=== PATIENT | male | born 1940 | race Caucasian/White ===

== ENCOUNTER 2018-11-22 13:00 | Inpatient (IN) ==
[2018-11-22] MEDS ORDERED: Isovue-370 500 ML BOTTLE IVP ONE (15:33)
[2018-11-22 16:01] LABS: Basophils % 0.2 %; Eosinophils % 0.5 %; Hematocrit 35.8 % (37.5-50.1); Hemoglobin 11.6 g/dL (12.9-16.9); Immature Granulocytes % 0.2 % (0-4); Lymphocytes # 1.1 K/mcL (0.6-4.6); Lymphocytes % 13.3 %; Mean Corpuscular HGB Conc 32.4 g/dL (31.6-35.5); Mean Corpuscular Hemoglobin 26.7 pg (28.0-33.3); Mean Corpuscular Volume 82.5 fL (83.0-100.0); Mean Platelet Volume 11.3 fL (9.4-12.4); Monocytes # 0.6 K/mcL (0.0-1.3); Neutrophils # 6.7 K/mcL (1.6-8.9); Platelet Count 207 K/mcL (140-400); Red Blood Count 4.34 M/mcL (4.19-5.50); Red Cell Distribution Width 13.3 % (11.5-14.5); Segmented Neutrophils % 78.8 %
[2018-11-22 16:08] LABS: INR 1.1; Prothrombin Time 12.7 Seconds (9.4-12.1)
[2018-11-22 16:11] LABS: Activated Partial Thrombo Time 34.1 Seconds (26.0-36.0)
[2018-11-22 16:24] LABS: Alanine Aminotransferase 10 Units/L (7-52); Albumin 3.9 g/dL (3.5-5.7); Albumin/Globulin Ratio 1.3 (1.1-2.2); Alkaline Phosphatase 46 Units/L (34-104); Aspartate Amino Transferase 18 Units/L (13-39); BUN/Creatinine Ratio 22 (6-26); Bilirubin,Total 0.9 mg/dL (0.3-1.0); Blood Urea Nitrogen 19 mg/dL (8-23); Calcium 8.9 mg/dL (8.6-10.3); Carbon Dioxide 26 mEq/L (23-29); Chloride 105 mEq/L (98-107); Glucose 110 mg/dL (70-105); Lipase 7 Units/L (11-82); Osmolality,Calculated 291 (280-300); Potassium 3.5 mEq/L (3.5-5.1); Sodium 139 mEq/L (136-145); Total Protein 6.9 g/dL (6.4-8.9); Troponin I < 0.03 ng/mL (< 0.04); eGFR For Non-African Americans > 60 (> 60)
--- NOTE | 2018-11-22 17:10 | Emergency Department Note ---
Disposition Clinical Impression: Rectal bleeding, Colonic mass, Kidney stone Hydronephrosis Qualifiers: Hydronephrosis type: unspecified Qualified Code(s): N13.30 - Unspecified hydronephrosis Disposition: Admitted As Inpatient Condition: Good Referrals: Pelon Mustafa MD [Primary Care Provider] - Forms: ED Satisfaction Letter Time of Disposition: 17:11 GI Bleed HPI - General Chief complaint: ED GI Bleed Stated complaint: Rectal bleed Time Seen by Provider: 11/22/18 15:03 Source: patient, family Mode of arrival: ambulatory Limitations: no limitations Nursing Notes Reviewed: Yes Vital Signs Reviewed: Yes - History of Present Illness HPI Narrative: 78 year old male presents to the ED with complanits of recta bleeding and passing clots. It appears that patient last colonscopy was over 10 years ago and he states that most recenlty in the past week he has been experincing increased rectal bleeding with clots that have been on the toilet paper and in the bowl. Osei states that this a fisrt time occurnce and he is having increased abdominal pain it he lwoer pelvic area and denies fevers nauea or vomititng. PAtient staets that he was suppose to be on xarelto therapy but has not been for sometime because it was too expernsive. Osei cannot recollect if he has had any previou abdominal surgeries in the past. Osei has not had a recent blood transfusion either. They are concerned that his iron level may be low because he has reqireed that int he past. - Related Data Home Medications Medication Instructions Recorded Confirmed Aspirin 81 mg PO DAILY 03/14/16 03/14/16 Cholecalciferol (D-3) [Vitamin D] 2,000 unit PO DAILY 03/14/16 03/14/16 Lisinopril [Zestril] 40 mg PO DAILY 03/14/16 03/14/16 Mv,Minerals/FA/Lycopene/Ginkgo 1 tab PO DAILY 03/14/16 03/14/16 [One Daily For Men 50+ Adv Tab] amLODIPine [Norvasc] 10 mg PO DAILY 03/14/16 03/14/16 Previous Rx's Medication Instructions Recorded Metoprolol [Lopressor] 50 mg PO BID #60 tablet 03/15/16 Rivaroxaban [Xarelto] 20 mg PO 1700 30 Days tablet 03/15/16 Allergies Allergy/AdvReac Type Severity Reaction Status Date / Time No Known Allergies Allergy Verified 11/22/18 13:17 All systems ED: reviewed and negative except as stated. Review of Systems: As Per HPI Constitutional: Denies: fever, chills, weakness, weight change Eyes: Denies: eye pain, eye discharge, vision change ENT ED: Denies: ear pain, throat pain, dental pain, hearing loss, epistaxis, congestion, dysphagia Cardiovascular: Denies: chest pain, palpitations, dyspnea on exertion, edema, syncope Respiratory: Denies: cough, dyspnea, wheezes, hemoptysis, stridor Gastrointestinal: Reports: abdominal pain, melena. Denies: nausea, vomiting, diarrhea, constipation, hematemesis, hematochezia Genitourinary: Denies: urgency, dysuria, frequency, hematuria Musculoskeletal: Denies: back pain, neck pain, arthralgia, myalgia Integumentary: Denies: rash, abrasion, lesions Neurological: Denies: headache, weakness, numbness, paresthesias, confusion, abnormal gait, vertigo Psychiatric: Denies: anxiety, depression, suicidal thoughts, homicidal thoughts, auditory hallucinations, visual hallucinations Endocrine: Denies: fatigue Hematological/Lymphatic: Denies: easy bleeding, easy bruising Allergic/Immunologic: Denies: facial swelling, urticaria Past Medical History - Past Medical History Medical history: Reports: atrial fibrillation, coronary artery disease, hypertension - Social History Smoking Status: Former smoker Smokeless Tobacco Status: No Alcohol use: Reports: none Drug use: Reports: none Physical Exam - General Limitations: no limitations General appearance: alert - Head Head exam: atraumatic, normocephalic, normal inspection - Eye Eye exam: Present: normal appearance, PERRL, EOMI - Expanded Eye Exam Pupils: Bilateral: reactive - ENT ENT exam: normal exam, normal oropharynx, mucous membranes moist - Expanded ENT Exam External ear exam: Present: normal external inspection Mouth exam: Present: normal external inspection Teeth exam: Present: normal inspection Throat exam: Present: normal inspection - Neck Neck exam: Present: normal inspection, full ROM, trachea midline - Chest Chest inspection: Present: normal inspection, symmetric chest wall rise - Respiratory Respiratory exam: Present: normal lung sounds bilaterally - Cardiovascular Cardiovascular exam: Present: regular rate, normal rhythm, normal heart sounds - Abdominal Exam Abdominal exam: Present: soft, tenderness. Absent: Non-Tender, distention, guarding, rebound, rigidity Abdominal tenderness: Present: suprapubic, mild - Rectal Exam Project Product Manager present during exam: Yes Rectal exam: Present: normal rectal tone, heme (+) stool, bloody stool, tenderness - Extremities Exam Extremities exam: Present: normal inspection, full ROM. Absent: tenderness, pedal edema - Expanded Upper Extremity Exam Shoulder exam: Present: normal inspection, full ROM Arm exam: Present: normal inspection, full ROM Elbow exam: Present: normal inspection, full ROM Forearm/Wrist exam: Present: normal inspection, full ROM Hand exam: Present: normal inspection, full ROM Vascular exam: Normal: capillary refill, radial pulse - Expanded Lower Extremity Exam Hip/Pelvis exam: Present: normal inspection, full ROM Upper leg exam: Present: normal inspection, full ROM Knee exam: Present: normal inspection, full ROM Lower leg exam: Present: normal inspection, full ROM Ankle exam: Present: normal inspection, full ROM Foot/toe exam: Present: normal inspection, full ROM Neurovascular/Tendon exam: Absent: motor deficit, sensory deficit, tendon deficit - Back Exam Back exam: Present: normal inspection, full ROM. Absent: tenderness - Neurological Exam Neurological exam: Present: alert, oriented X3 - Expanded Neurological Exam Patient oriented to: Present: person, place, time Coma Scale Eye Opening: Spontaneous Coma Scale Motor Response: Obeys Commands Coma Scale Verbal Response: Oriented Coma Scale Total: 15 - Psychiatric Psychiatric exam: Present: normal affect, normal mood - Skin Skin exam: Present: warm, dry, intact, normal color Course Course Narrative: ABCT and labs and then admit to medicine. He will not needs a tranfsusion at this ttime because his hgb is 11, although it has dropped by about 3 units from the past when he was normal - Consultations Consultation #1: discussed case witih Dr. Graham and he would like patient NPO after midnight with colon prep now. Time: 17:40 Consultation #2: Discussed case with Dr. Humphrey urology and he will see patinet as consutl Time: 17:40 Consultation #3: discussed case with dr. Keller and he accepts patient to his service Time: 17:44 Vital Signs Temperature 97.9 F 11/22/18 13:13 Pulse Rate 97 11/22/18 13:13 Respiratory Rate 16 11/22/18 13:13 Blood Pressure 138/79 11/22/18 13:13 O2 Sat by Pulse Oximetry 96 11/22/18 13:13 Temperature 97.9 F 11/22/18 15:10 Pulse Rate 83 11/22/18 17:21 Respiratory Rate 16 11/22/18 15:10 Blood Pressure 135/93 11/22/18 17:21 O2 Sat by Pulse Oximetry 96 11/22/18 17:21 Oxygen Delivery Oxygen Delivery Room Air GI Bleed - Medical Records Medical records reviewed: Yes I reviewed the patient's medical records. - Lab Data Lab results reviewed: Yes I reviewed the patient's lab results. Result diagrams: 11/22/18 15:46 11/22/18 15:46 Lab Results 11/22/18 11/22/18 11/22/18 Range/Units 15:46 15:46 15:46 WBC 8.5 (4.3-11.1) K/mcL RBC 4.34 (4.19-5.50) M/mcL Hgb 11.6 L (12.9-16.9) g/dL Hct 35.8 L (37.5-50.1) % MCV 82.5 L (83.0-100.0) fL MCH 26.7 L (28.0-33.3) pg MCHC 32.4 (31.6-35.5) g/dL RDW 13.3 (11.5-14.5) % Plt Count 207 (140-400) K/mcL MPV 11.3 (9.4-12.4) fL Immature Gran % 0.2 (0-4) % Seg Neutrophils % 78.8 % Lymphocytes % 13.3 % Monocytes % 7.0 % Eosinophils % 0.5 % Basophils % 0.2 % Neutrophils # 6.7 (1.6-8.9) K/mcL Lymphocytes # 1.1 (0.6-4.6) K/mcL Monocytes # 0.6 (0.0-1.3) K/mcL Eosinophils # 0.0 (0.0-0.6) K/mcL Basophils # 0.0 (0.0-0.2) K/mcL PT 12.7 H (9.4-12.1) Seconds INR 1.1 APTT 34.1 (26.0-36.0) Seconds Sodium 139 (136-145) mEq/L Potassium 3.5 (3.5-5.1) mEq/L Chloride 105 (98-107) mEq/L Carbon Dioxide 26 (23-29) mEq/L BUN 19 (8-23) mg/dL Creatinine 0.86 (0.70-1.30) mg/dL Est GFR ( Amer) > 60 (> 60) Est GFR (Non-Af Amer) > 60 (> 60) BUN/Creatinine Ratio 22 (6-26) Glucose 110 H (70-105) mg/dL Calculated Osmolality 291 (280-300) Lactic Acid (0.5-2.2) mmol/L Calcium 8.9 (8.6-10.3) mg/dL Total Bilirubin 0.9 (0.3-1.0) mg/dL AST 18 (13-39) Units/L ALT 10 (7-52) Units/L Alkaline Phosphatase 46 (34-104) Units/L Troponin I < 0.03 (< 0.04) ng/mL Serum Total Protein 6.9 (6.4-8.9) g/dL Albumin 3.9 (3.5-5.7) g/dL Globulin 3.0 (2.4-3.5) g/dL Albumin/Globulin Ratio 1.3 (1.1-2.2) Lipase 7 L (11-82) Units/L Stool Occult Bld Scrn (Negative) Blood Type Antibody Screen 11/22/18 11/22/18 11/22/18 Range/Units 15:46 15:46 16:29 WBC (4.3-11.1) K/mcL RBC (4.19-5.50) M/mcL Hgb (12.9-16.9) g/dL Hct (37.5-50.1) % MCV (83.0-100.0) fL MCH (28.0-33.3) pg MCHC (31.6-35.5) g/dL RDW (11.5-14.5) % Plt Count (140-400) K/mcL MPV (9.4-12.4) fL Immature Gran % (0-4) % Seg Neutrophils % % Lymphocytes % % Monocytes % % Eosinophils % % Basophils % % Neutrophils # (1.6-8.9) K/mcL Lymphocytes # (0.6-4.6) K/mcL Monocytes # (0.0-1.3) K/mcL Eosinophils # (0.0-0.6) K/mcL Basophils # (0.0-0.2) K/mcL PT (9.4-12.1) Seconds INR APTT (26.0-36.0) Seconds Sodium (136-145) mEq/L Potassium (3.5-5.1) mEq/L Chloride (98-107) mEq/L Carbon Dioxide (23-29) mEq/L BUN (8-23) mg/dL Creatinine (0.70-1.30) mg/dL Est GFR ( Amer) (> 60) Est GFR (Non-Af Amer) (> 60) BUN/Creatinine Ratio (6-26) Glucose (70-105) mg/dL Calculated Osmolality (280-300) Lactic Acid 0.8 (0.5-2.2) mmol/L Calcium (8.6-10.3) mg/dL Total Bilirubin (0.3-1.0) mg/dL AST (13-39) Units/L ALT (7-52) Units/L Alkaline Phosphatase (34-104) Units/L Troponin I (< 0.04) ng/mL Serum Total Protein (6.4-8.9) g/dL Albumin (3.5-5.7) g/dL Globulin (2.4-3.5) g/dL Albumin/Globulin Ratio (1.1-2.2) Lipase (11-82) Units/L Stool Occult Bld Scrn Positive A (Negative) Blood Type O POSITIVE Antibody Screen NEGATIVE - Radiology Data Radiology results reviewed: Yes I reviewed the patient's radiology results. - EKG Data EKG attestation: Yes I reviewed and interpreted this EKG. EKG results narrative: NSR with rate of 98. NO STEMI. normal intervlas. no change from 07/06/18. 1557
[2018-11-22] MEDS ORDERED: *HR* Metoprolol 5 MG/5 ML VIAL IVP ONE (18:47)
[2018-11-22] MEDS ORDERED: *HR* Metoprolol 5 MG/5 ML VIAL IVP PRN (18:47)
[2018-11-22] MEDS ORDERED: OXYCODONE Oral CONC 10 MG/0.5 ML ORAL.SYG SL PRN ×2 (20:48)
[2018-11-22] MEDS ORDERED: Naloxone 0.4 MG/ML INJ IVP PRN (20:48)
--- NOTE | 2018-11-22 20:55 | Internal Med History&Physical ---
Date of Encounter: 11/22/18 Time of Encounter: 17:55 Internal Medicine - H&P: HPI History of present illness: 78-year-old male with history of atrial fibrillation prescribed Xarelto but reportedly not taking, CAD on aspirin, hypertension, presented to ED due to bright red blood per rectum. Patient is alone in room and he provides history. Patient stated that he had a bowel movement around 2 pm today and and notes lots of blood with clots while having a bowel movement. He noticed blood surrounding the stool. He also complaints of chronic left pain. He denies fevers/chills, n/v, diarrhea. Patient states he has never had anything like this occur in the past. He has not had any colonoscopy recently. A CT abdomen/pelvis in the ED showed a descending colon mass, diverticulosis, and 6 mm ureteral stone with hydronephrosis. INR was 1.1. At bedside patient was noted to have HR ranging 90-120 bpm on my assessment. His BP is within normal limits. He states he did not get a chance to take much of his cardiac medications today. Past Med Surg Social Fam HX - Past Medical History Medical history: atrial fibrillation, coronary artery disease, hypertension - Social History Smoking Status: Former smoker Smokeless Tobacco Status: No Alcohol use: none Drug use: none Internal Medicine - H&P: Meds Aspirin 81 mg PO DAILY 03/14/16 [History] Cholecalciferol (D-3) [Vitamin D] 2,000 unit PO DAILY 03/14/16 [History] Lisinopril [Zestril] 40 mg PO DAILY 03/14/16 [History] Mv,Minerals/FA/Lycopene/Ginkgo [One Daily For Men 50+ Adv Tab] 1 tab PO DAILY 03/14/16 [History] amLODIPine [Norvasc] 10 mg PO DAILY 03/14/16 [History] Metoprolol [Lopressor] 50 mg PO BID #60 tablet 03/15/16 [Rx] Rivaroxaban [Xarelto] 20 mg PO 1700 30 Days tablet 03/15/16 [Rx] Allergy/AdvReac Type Severity Reaction Status Date / Time No Known Allergies Allergy Verified 11/22/18 13:17 All Systems PM: A 10-system review of systems was performed and is negative for pertinent findings except as documented above in the HPI. - Constitutional Vitals: Temp Pulse Resp BP Pulse Ox 97.5 F L 97 18 157/91 97 11/22/18 19:11 11/22/18 19:11 11/22/18 19:11 11/22/18 19:11 11/22/18 19:11 General appearance: Present: A&O X 3, answers questions appropriately Exam: . - Head Head exam: Present: atraumatic, normocephalic - Eye Eye exam: Present: PERRL, conjuntiva pink, sclera anicteric Pupils: Present: PERRL - Neck Neck exam general surgery: Present: supple, trachea midline. Absent: lymphadenopathy - Respiratory Respiratory exam: Present: CTAB. Absent: accessory muscle use, rales, rhonchi, wheezes - Cardiovascular Cardiovascular exam: Present: RRR, +S1, +S2. Absent: diastolic murmur, gallop, rubs, systolic murmur - GI/Abdominal GI/Abdominal exam: Present: normal bowel sounds, soft, no peritoneal signs. Absent: distended, tenderness - Extremities Exam Extremities exam: Present: warm, radial pulses palpable and symmetrical. Absent: calf tenderness, cyanotic, pedal edema - Neurological Exam Neurological exam: Present: CN II-XII intact, oriented X3, no focal deficits. Absent: pronater drift, facial droop, speech deficit - Skin Skin exam: Present: dry, intact Internal Med - H&P Results - Labs CBC & Chem 7: 11/22/18 15:46 11/22/18 15:46 Labs: Short CBC 11/22/18 Range/Units 15:46 WBC 8.5 (4.3-11.1) K/mcL Hgb 11.6 L (12.9-16.9) g/dL Hct 35.8 L (37.5-50.1) % Plt Count 207 (140-400) K/mcL Neutrophils # 6.7 (1.6-8.9) K/mcL BMP 11/22/18 15:46 Sodium 139 Potassium 3.5 Chloride 105 Carbon Dioxide 26 BUN 19 Creatinine 0.86 Glucose 110 H Calcium 8.9 Cardiac Enzymes 11/22/18 Range/Units 15:46 Troponin I < 0.03 (< 0.04) ng/mL Liver Function 11/22/18 Range/Units 15:46 Total Bilirubin 0.9 (0.3-1.0) mg/dL AST 18 (13-39) Units/L ALT 10 (7-52) Units/L Alkaline Phosphatase 46 (34-104) Units/L Albumin 3.9 (3.5-5.7) g/dL - Impressions ITS Impressions Abdomen/Pelvis CT 11/22/18 15:33 IMPRESSION: 1. There appears to be a mass lesion involving the descending colon. Colonoscopic evaluation is recommended. 2. Mild left hydroureteronephrosis, the result of a partially obstructing 5 x 6 mm calculus proximal left ureter. There is slightly diminished enhancement throughout the left kidney compared to the right keeping with obstructive uropathy. 3. Diverticulosis coli without CT evidence of acute diverticulitis. D/ / Jamison Elizabeth / Jamison Elizabeth Interpreting Provider: Jamison Elizabeth - Assessment and plan (1) BRBPR (bright red blood per rectum) Current Visit: Yes Status: Acute Assessment and plan: Based on CT abdomen/pelvis, differentials include colonic mass vs dive rticulosis. Hemodynamically, BP is normal but tachycardic, likely from missed metoprolol dose. He does appear slightly dehydrated on exam. - Monitor H&H Q8H - Type and screen done in ED - Transfuse if hemoglobin <8 as patient has CAD, or he becomes symptomatic. - Gen Surg consulted. - NPO at midnight. (2) Colonic mass Current Visit: Yes Status: Acute Assessment and plan: Plan as above (3) Hydronephrosis Current Visit: Yes Status: Acute Assessment and plan: Likely due to kidney stone. Renal function is normal. NPO at midnight. Urology consulted. Qualifiers: Hydronephrosis type: unspecified Qualified Code(s): N13.30 - Unspecified hydronephrosis (4) Kidney stone Current Visit: Yes Status: Acute (5) Hypertension Current Visit: No Status: Acute Assessment and plan: Plan to resume Norvasc, lisinopril, metoprolol. Med rec pending currently. Qualifiers: Hypertension type: essential hypertension Qualified Code(s): I10 - Essential (primary) hypertension (6) Atrial fibrillation Current Visit: Yes Status: Acute Assessment and plan: Takes metoprolol at home. Has missed medications this morning and patient tachycardic currently. Patient is prescribed Xarelto but it is reported he does not take. Patient has list of medications but he is not exactly sure the names of the medications he takes. Will resume home PO metoprolol and also place IV lopressor prn. Hold Xarelto due to bleed Qualifiers: Atrial fibrillation type: unspecified Qualified Code(s): I48.91 - Unspecified atrial fibrillation (7) DVT prophylaxis Current Visit: No Status: Acute Assessment and plan: EPCD - Time Spent With Patient Total time spent is greater than 50% in coordination of care (as documented) at patient's floor/unit and/or counseling patient:
[2018-11-22] MEDS ORDERED: Ondansetron 4 MG/2 ML VIAL IVP PRN (21:12)
[2018-11-22] MEDS: Ringers Solution, Lactated 1,000 ML IVC SCH (21:57)
[2018-11-22 22:34] LABS: Hematocrit 38.6 % (37.5-50.1); Hemoglobin 12.8 g/dL (12.9-16.9)
[2018-11-23 01:37] LABS: Bilirubin,Urine Negative (Negative); Blood,Urine Negative (Negative); Clarity,Urine Clear (Clear); Color,Urine Yellow (Yellow); Glucose,Urine (UA) Normal (Normal); Ketones,Urine Negative (Negative); Leukocyte Esterase,Urine Small (Negative); Nitrite,Urine Negative (Negative); Protein,Urine Negative (Neg-Trace); Specific Gravity,Urine 1.018 (1.010-1.025); Urobilinogen,Urine Normal (Normal)
[2018-11-23 01:38] LABS: Bacteria,Urine None Seen per hpf (None-Few); Hyaline Casts,Urine None Seen per lpf (None-Few); RBC,Urine 0-3 per hpf (0-3); Squamous Epithelial Cell,Urine Moderate per lpf (None-Few)
--- NOTE | 2018-11-23 08:22 | Urology - Consult Note ---
Addendum entered and electronically signed by SUNNY Oneal 11/24/18 08:31: Addendum entered and electronically signed by Jareth Lafleur MD 11/23/18 19:38: Patient seen and examined. Agree with physician surveyor instrument assistant assessment. I pers onally reviewed the CT scan and agree that there is a proximal ureteral stone with mild hydronephrosis. He remains completely asymptomatic and states that his only discomfort has been actually on the right side. I feel that the more pressing matter is the colon mass and a colonoscopy is scheduled for tomorrow. He will eventually require intervention for the stone but this could even be performed on an outpatient basis. We will continue to follow the patient and the findings on the colonoscopy. He probably should undergo the ureteroscopic stone extraction prior to any larger general surgery procedure such as a colectomy. I will discuss this with Gen. surgery. Original Note: <Jayna Duncan - Last Filed: 11/23/18 08:17> Date of Encounter: 11/23/18 Time of Encounter: 08:00 - Assessment and Plan (1) Left ureteral stone Current Visit: Yes Status: Acute Assessment and plan: Patient is a 78-year-old male who presents with a left proximal ureteral stone and mild left hydronephrosis. Vital signs are stable and afebrile. White blood cell count and urinalysis are reassuring. Patient appears to be asymptomatic with left ureteral stone, and renal function is reassuring with a serum crea tinine well within normal range at 0.86. Discussed CT findings with patient and concern for descending colon mass. Patient is NPO and likely planning inpatient colonoscopy. We will continue to follow patient, follow serum creatinine, and may intervene for stone extraction as needed. (2) Colonic mass Current Visit: Yes Status: Acute (3) Hydronephrosis Current Visit: Yes Status: Acute Qualifiers: Hydronephrosis type: unspecified Qualified Code(s): N13.30 - Unspecified hydronephrosis Urology CN:HPI Consult date: 11/23/18 Reason for consult Urology: Hydronephrosis (left ureteral stone) History of present illness: Patient is a 78-year-old male who presents with a 5 x 6 mm left proximal ureteral stone and mild left hydronephrosis. Patient initially presented to the emergency department with complaints of bright red blood per rectum right-sided abdominal pain. Patient underwent a CT scan of abdomen and pelvis revealing a possible descending colon mass, diverticulosis, and a left proximal ureteral stone. Patient states abdominal pain is localized to the right lower quadrant and his been present for several weeks. Patient denies any fever, chills, dysuria, gross hematuria, incontinence, frequency, urgency. Patient admits to a long-standing history of urinary hesitancy and postvoid dribbling. Patient has a prior history of renal stones, with his last stone occurring approximately 30 years ago and was passed by medical expulsion. Patient states the stone was visible on KUB, and he confirmed passage within 1 week of the x-ray. Patient denies any known family history of renal stones, malignancy, or colon cancer. It is of note, during evaluation patient exhibits some expressive aphasia and seems frustrated when trying to explain past medical history. Past Med Surg Social Fam HX - Past Medical History Medical history: atrial fibrillation, coronary artery disease, hypertension - Social History Smoking Status: Former smoker Smokeless Tobacco Status: No Alcohol use: none Drug use: none Medications and Allergies RX: Aspirin 81 mg PO DAILY 03/14/16 [History] RX: Cholecalciferol (D-3) [Vitamin D] 2,000 unit PO DAILY 03/14/16 [History] RX: Lisinopril [Zestril] 40 mg PO DAILY 03/14/16 [History] RX: Mv,Minerals/FA/Lycopene/Ginkgo [One Daily For Men 50+ Adv Tab] 1 tab PO DAILY 03/14/16 [History] RX: amLODIPine [Norvasc] 10 mg PO DAILY 03/14/16 [History] RX: Metoprolol [Lopressor] 50 mg PO BID #60 tablet 03/15/16 [Rx] RX: Rivaroxaban [Xarelto] 20 mg PO 1700 30 Days tablet 03/15/16 [Rx] Allergy/AdvReac Type Severity Reaction Status Date / Time No Known Allergies Allergy Verified 11/22/18 13:17 Review of Systems - Constitutional no chills, no fatigue, no fever(s) - EENT Nose, mouth and throat: no dizziness, no headache(s) - Cardiovascular no chest pain, no diaphoresis, no dyspnea - Respiratory no cough, no dyspnea - Gastrointestinal abdominal pain, change in bowel habits, nausea, no vomiting - Genitourinary nocturia, post void dribbling, urinary hesitancy, no difficulty urinating, no dysuria, no flank pain, no hematuria, no urinary frequency, no urinary incontinence, no urinary urgency - Musculoskeletal no back pain, no muscle weakness - Integumentary no erythema, no rash, no swelling - Neurological other (expressive aphasia ), no confusion, no sensory deficit - Psychiatric no anxiety, no confusion - Hematologic/Lymphatic no easy bleeding, no easy bruising - Allergic/Immunologic no throat swelling, no wheezing Exam Initial Vital Signs Temp Pulse Resp BP Pulse Ox 97.9 F 97 16 138/79 96 11/22/18 13:13 11/22/18 13:13 11/22/18 13:13 11/22/18 13:13 11/22/18 13:13 - General physical appearance Present: no distress, no pain - Eyes Present: PERRL, normal ocular movement - ENT Present: normal nares, no hearing loss, no congestion - Neck Present: no masses, trachea midline - Respiratory Present: normal respiratory effort - Abdomen Abdomen: Present: soft, tender (RLQ pain) - Integumentary Present: no rash, no abnormal pigmentation - Neurologic Present: other (expressive aphasia ). Absent: confused Urology Results - Labs 11/22/18 22:20 11/22/18 15:46 Abnormal lab results Hgb 12.8 g/dL (12.9-16.9) L 11/22/18 22:20 MCV 82.5 fL (83.0-100.0) L 11/22/18 15:46 MCH 26.7 pg (28.0-33.3) L 11/22/18 15:46 PT 12.7 Seconds (9.4-12.1) H 11/22/18 15:46 Glucose 110 mg/dL (70-105) H 11/22/18 15:46 POC Glucose 120 mg/dL (70-99) H 11/23/18 05:02 Lipase 7 Units/L (11-82) L 11/22/18 15:46 Ur Leukocyte Esterase Small (Negative) H 11/23/18 01:30 Urine Microscopic WBC 5-15 per hpf (0-3) H 11/23/18 01:30 Ur Squamous Epith Cells Moderate per lpf (None-Few) H 11/23/18 01:30 Ur Culture Indicated? YES (NO) A 11/23/18 01:30 Stool Occult Bld Scrn Positive (Negative) A 11/22/18 16:29 Diabetes panel 11/22/18 Range/Units 15:46 Sodium 139 (136-145) mEq/L Potassium 3.5 (3.5-5.1) mEq/L Chloride 105 (98-107) mEq/L Carbon Dioxide 26 (23-29) mEq/L BUN 19 (8-23) mg/dL Creatinine 0.86 (0.70-1.30) mg/dL Glucose 110 H (70-105) mg/dL Calcium 8.9 (8.6-10.3) mg/dL AST 18 (13-39) Units/L ALT 10 (7-52) Units/L Alkaline Phosphatase 46 (34-104) Units/L Albumin 3.9 (3.5-5.7) g/dL Calcium panel 11/22/18 Range/Units 15:46 Calcium 8.9 (8.6-10.3) mg/dL Albumin 3.9 (3.5-5.7) g/dL Pituitary panel 11/22/18 Range/Units 15:46 Sodium 139 (136-145) mEq/L Potassium 3.5 (3.5-5.1) mEq/L Chloride 105 (98-107) mEq/L Carbon Dioxide 26 (23-29) mEq/L BUN 19 (8-23) mg/dL Creatinine 0.86 (0.70-1.30) mg/dL Glucose 110 H (70-105) mg/dL Calcium 8.9 (8.6-10.3) mg/dL Adrenal panel 11/22/18 Range/Units 15:46 Sodium 139 (136-145) mEq/L Potassium 3.5 (3.5-5.1) mEq/L Chloride 105 (98-107) mEq/L Carbon Dioxide 26 (23-29) mEq/L BUN 19 (8-23) mg/dL Creatinine 0.86 (0.70-1.30) mg/dL Glucose 110 H (70-105) mg/dL Calcium 8.9 (8.6-10.3) mg/dL Total Bilirubin 0.9 (0.3-1.0) mg/dL AST 18 (13-39) Units/L ALT 10 (7-52) Units/L Alkaline Phosphatase 46 (34-104) Units/L Albumin 3.9 (3.5-5.7) g/dL All other labs normal. - Imaging CT scan - abdomen: report reviewed, image reviewed CT scan - pelvis: report reviewed, image reviewed Consult Discharge Plan - Plan Referrals: Pelon Mustafa MD [Primary Care Provider] - <Sonny Quinn - Last Filed: 11/23/18 09:50> Date of Encounter: 11/23/18 - Assessment and Plan (1) Nocturia Current Visit: Yes Status: Acute Assessment and plan: Patient will try to cut back on fluids before bedtime. (2) Urinary hesitancy Current Visit: Yes Status: Acute Assessment and plan: Patient voiding okay at this time. May require further outpatient workup. Urology CN:HPI History of present illness: Patient was seen and examined independently. I agree with the plan as written by Jayna Duncan. At this point I believe the patient's most important workup involves his likely colonoscopy for diagnosis of colon mass. Patient will like ly require left ureteral stent or stone extraction in the near future. Patient is currently asymptomatic. Exam Initial Vital Signs Temp Pulse Resp BP Pulse Ox 97.9 F 97 16 138/79 96 11/22/18 13:13 11/22/18 13:13 11/22/18 13:13 11/22/18 13:13 11/22/18 13:13 Urology Results - Labs 11/22/18 22:20 11/22/18 15:46 Abnormal lab results Hgb 12.8 g/dL (12.9-16.9) L 11/22/18 22:20 MCV 82.5 fL (83.0-100.0) L 11/22/18 15:46 MCH 26.7 pg (28.0-33.3) L 11/22/18 15:46 PT 12.7 Seconds (9.4-12.1) H 11/22/18 15:46 Glucose 110 mg/dL (70-105) H 11/22/18 15:46 POC Glucose 120 mg/dL (70-99) H 11/23/18 05:02 Lipase 7 Units/L (11-82) L 11/22/18 15:46 Ur Leukocyte Esterase Small (Negative) H 11/23/18 01:30 Urine Microscopic WBC 5-15 per hpf (0-3) H 11/23/18 01:30 Ur Squamous Epith Cells Moderate per lpf (None-Few) H 11/23/18 01:30 Ur Culture Indicated? YES (NO) A 11/23/18 01:30 Stool Occult Bld Scrn Positive (Negative) A 11/22/18 16:29 Diabetes panel 11/22/18 Range/Units 15:46 Sodium 139 (136-145) mEq/L Potassium 3.5 (3.5-5.1) mEq/L Chloride 105 (98-107) mEq/L Carbon Dioxide 26 (23-29) mEq/L BUN 19 (8-23) mg/dL Creatinine 0.86 (0.70-1.30) mg/dL Glucose 110 H (70-105) mg/dL Calcium 8.9 (8.6-10.3) mg/dL AST 18 (13-39) Units/L ALT 10 (7-52) Units/L Alkaline Phosphatase 46 (34-104) Units/L Albumin 3.9 (3.5-5.7) g/dL Calcium panel 11/22/18 Range/Units 15:46 Calcium 8.9 (8.6-10.3) mg/dL Albumin 3.9 (3.5-5.7) g/dL Pituitary panel 11/22/18 Range/Units 15:46 Sodium 139 (136-145) mEq/L Potassium 3.5 (3.5-5.1) mEq/L Chloride 105 (98-107) mEq/L Carbon Dioxide 26 (23-29) mEq/L BUN 19 (8-23) mg/dL Creatinine 0.86 (0.70-1.30) mg/dL Glucose 110 H (70-105) mg/dL Calcium 8.9 (8.6-10.3) mg/dL Adrenal panel 11/22/18 Range/Units 15:46 Sodium 139 (136-145) mEq/L Potassium 3.5 (3.5-5.1) mEq/L Chloride 105 (98-107) mEq/L Carbon Dioxide 26 (23-29) mEq/L BUN 19 (8-23) mg/dL Creatinine 0.86 (0.70-1.30) mg/dL Glucose 110 H (70-105) mg/dL Calcium 8.9 (8.6-10.3) mg/dL Total Bilirubin 0.9 (0.3-1.0) mg/dL AST 18 (13-39) Units/L ALT 10 (7-52) Units/L Alkaline Phosphatase 46 (34-104) Units/L Albumin 3.9 (3.5-5.7) g/dL All other labs normal.
[2018-11-23] MEDS: Ringers Solution, Lactated 1,000 ML IVC SCH (08:41)
--- NOTE | 2018-11-23 08:41 | Internal Med Progress Note ---
<Carlos Balderas - Last Filed: 11/23/18 17:18> Hospitalist Progress Note - Encounter Date of Encounter: 11/23/18 - Exam Vitals: Temp Pulse Resp BP Pulse Ox 97.9 F 88 19 134/80 96 11/23/18 15:13 11/23/18 15:13 11/23/18 15:13 11/23/18 15:13 11/23/18 15:13 - Assessment and Plan (1) BRBPR (bright red blood per rectum) Current Visit: Yes Status: Acute (2) Colonic mass Current Visit: Yes Status: Acute (3) Hydronephrosis Current Visit: Yes Status: Acute (4) Kidney stone Current Visit: Yes Status: Acute (5) Hypertension Current Visit: No Status: Acute (6) Atrial fibrillation Current Visit: Yes Status: Acute (7) DVT prophylaxis Current Visit: No Status: Acute - Time Spent with Patient Total time spent is greater than 50% in coordination of care (as documented) at patient's floor/unit and/or counseling patient: Internal Medicine: Result - Labs CBC & Chem 7: 11/23/18 09:27 11/23/18 09:27 Labs: Short CBC 11/22/18 11/23/18 Range/Units 22:20 09:27 WBC 10.1 (4.3-11.1) K/mcL Hgb 12.8 L 11.8 L (12.9-16.9) g/dL Hct 38.6 36.0 L (37.5-50.1) % Plt Count 224 (140-400) K/mcL Neutrophils # 8.2 (1.6-8.9) K/mcL BMP 11/23/18 09:27 Sodium 140 Potassium 3.9 Chloride 106 Carbon Dioxide 27 BUN 18 Creatinine 0.81 Glucose 122 H Calcium 9.1 Urine 11/23/18 Range/Units 01:30 Urine Color Yellow (Yellow) Urine Clarity Clear (Clear) Urine pH 7.0 (5.0-8.0) pH Units Ur Specific [place] 1.018 (1.010-1.025) Urine Protein Negative (Neg-Trace) mg/dL Urine Glucose (UA) Normal (Normal) mg/dL - ABG Interpretation ABG results: PT/INR, D-dimer PT 12.7 Seconds (9.4-12.1) H 11/22/18 15:46 - Impressions Impressions Abdomen/Pelvis CT 11/22/18 15:33 IMPRESSION: 1. There appears to be a mass lesion involving the descending colon. Colonoscopic evaluation is recommended. 2. Mild left hydroureteronephrosis, the result of a partially obstructing 5 x 6 mm calculus proximal left ureter. There is slightly diminished enhancement throughout the left kidney compared to the right keeping with obstructive uropathy. 3. Diverticulosis coli without CT evidence of acute diverticulitis. D/ / Jamison Elizabeth / Jamison Elizabeth Interpreting Provider: Jamison Elizabeth Consult Discharge Plan - Plan Referrals: Pelon Mustafa MD [Primary Care Provider] - - Attending Attestation I examined this patient and my medical decision-making was reviewed with the Resident Physician. I agree with the documented findings, disposition and treatment plan as described except to the extent set forth below. <Eleonora Rosales N - Last Filed: 11/23/18 22:54> Hospitalist Progress Note - Encounter Date of Encounter: 11/23/18 Time of Encounter: 08:40 - Subjective Interval History: Mr. Pollack was seen and evaluated at the bedside. Surgery DIAL SCREW ASSEMBLER notified primary team that patient was confused during their evaluation this morning and appeared to be demonstrating some expressive aphasia. They reported speaking to the patient's , who stated that Mr. Pollack has been having increased intermittent confusion over the last year; however, his presentation this morning was apparently not his baseline. At the time of my assessment, patient appeared to be back at baseline, with only an evident delay in answering questions. Patient states that he is feeling fairly well this morning, and endorses the HPI consistent with that documented in his admission H&P. He reports worsening constipation over the last several months, and reveals that he did take a laxative prior to the diarrhea he experienced yesterday. He denies any prior bleeding episodes, nausea, or vomiting. He denies any specific complaints or c oncerns at this time. - Exam Vitals: Temp Pulse Resp BP Pulse Ox 97.6 F 92 16 139/86 96 11/23/18 07:36 11/23/18 07:36 11/23/18 07:36 11/23/18 07:36 11/23/18 08:30 Exam: GENERAL: Adult male seated on the side of the bed. He appears to be his stated age and does not appear to be in acute distress. HEENT: Atraumatic and normocephalic. CARDIOVASCULAR: Regular rate and rhythm. S1 and S2 present. No murmurs, gallops, or rubs appreciated. RESPIRATORY: Clear to auscultation bilaterally. Chest rises and falls symmetrically with respiration. No accessory muscle use noted. GASTROINTESTINAL: Abdomen is soft, nontender, nondistended. Active bowel sounds present x4 quadrants. EXTREMITIES: No clubbing, cyanosis, or edema present. NEUROLOGIC: Alert and oriented x3. Patient is slow to answer questions, but does so appropriately and consistently. No apparent focal deficits present. - Assessment and Plan (1) BRBPR (bright red blood per rectum) Current Visit: Yes Status: Acute Assessment and Plan: Suspect colonic mass vs. diverticulosis based on CT of the abdomen and pelvis. Patient has remained hemodynamically stable throughout the day, with morning CBC demonstrating a hemoglobin of 11.8. Patient is scheduled for a colonoscopy tomorrow, and has orders to be NPO after midnight. - Continue to monitor H&H; plan for transfusion if hemoglobin is <8 or if he becomes symptomatic. - Anticipate further management to be determined based on results of colonoscopy. Appreciate surgery input and recommendations regarding this problem. (2) Colonic mass Current Visit: Yes Status: Acute Assessment and Plan: Concern for possible malignancy. Patient reports worsening constipation over the last year. - Plan as above. (3) Left ureteral stone Current Visit: Yes Status: Acute Assessment and Plan: CT of the abdomen/pelvis demonstrated a partially obstructing 5x6mm calculus in the proximal left ureter. Patient was evaluated by urology today; per their consult note, no immediate intervention is indicated. - Continue management per urology recommendations. - Recommend patient follow up in the outpatient clinic after discharge for definitive management. (4) Hydronephrosis Current Visit: Yes Status: Acute Assessment and Plan: Likely secondary to left ureteral stone. - Plan as above. (5) Atrial fibrillation Current Visit: Yes Status: Acute Assessment and Plan: Resumed home dose of metoprolol today. Patient reportedly does not take his anticoagulant as prescribed; due to acute bleed, will hold chemical anticoagulation at this time. (6) Hypertension Current Visit: No Status: Acute Assessment and Plan: - Continue metoprolol 50mg BID. (7) DVT prophylaxis Current Visit: No Status: Acute Assessment and Plan: - SCDs. - Time Spent with Patient Total time spent is greater than 50% in coordination of care (as documented) at patient's floor/unit and/or counseling patient: Internal Medicine: Result - Labs CBC & Chem 7: 11/23/18 09:27 11/23/18 09:27 Labs: Short CBC 11/22/18 11/22/18 Range/Units 15:46 22:20 WBC 8.5 (4.3-11.1) K/mcL Hgb 11.6 L 12.8 L (12.9-16.9) g/dL Hct 35.8 L 38.6 (37.5-50.1) % Plt Count 207 (140-400) K/mcL Neutrophils # 6.7 (1.6-8.9) K/mcL BMP 11/22/18 15:46 Sodium 139 Potassium 3.5 Chloride 105 Carbon Dioxide 26 BUN 19 Creatinine 0.86 Glucose 110 H Calcium 8.9 Cardiac Enzymes 11/22/18 Range/Units 15:46 Troponin I < 0.03 (< 0.04) ng/mL Liver Function 11/22/18 Range/Units 15:46 Total Bilirubin 0.9 (0.3-1.0) mg/dL AST 18 (13-39) Units/L ALT 10 (7-52) Units/L Alkaline Phosphatase 46 (34-104) Units/L Albumin 3.9 (3.5-5.7) g/dL Urine 11/23/18 Range/Units 01:30 Urine Color Yellow (Yellow) Urine Clarity Clear (Clear) Urine pH 7.0 (5.0-8.0) pH Units Ur Specific [place] 1.018 (1.010-1.025) Urine Protein Negative (Neg-Trace) mg/dL Urine Glucose (UA) Normal (Normal) mg/dL - ABG Interpretation ABG results: PT/INR, D-dimer PT 12.7 Seconds (9.4-12.1) H 11/22/18 15:46 - Impressions Impressions Abdomen/Pelvis CT 11/22/18 15:33 IMPRESSION: 1. There appears to be a mass lesion involving the descending colon. Colonoscopic evaluation is recommended. 2. Mild left hydroureteronephrosis, the result of a partially obstructing 5 x 6 mm calculus proximal left ureter. There is slightly diminished enhancement throughout the left kidney compared to the right keeping with obstructive uropathy. 3. Diverticulosis coli without CT evidence of acute diverticulitis. D/ / Jamison Elizabeth / Jamison Elizabeth Interpreting Provider: Jamison Elizabeth <Carlos Balderas - Last Filed: 11/23/18 17:18> (3) Hydronephrosis Qualifiers: Hydronephrosis type: unspecified Qualified Code(s): N13.30 - Unspecified hydronephrosis (5) Hypertension Qualifiers: Hypertension type: essential hypertension Qualified Code(s): I10 - Essential (primary) hypertension (6) Atrial fibrillation Qualifiers: Atrial fibrillation type: unspecified Qualified Code(s): I48.91 - Unspecified atrial fibrillation <Eleonora Rosales N - Last Filed: 11/23/18 22:54> (4) Hydronephrosis Qualifiers: Hydronephrosis type: unspecified Qualified Code(s): N13.30 - Unspecified hydronephrosis (5) Atrial fibrillation Qualifiers: Atrial fibrillation type: unspecified Qualified Code(s): I48.91 - Unspecified atrial fibrillation (6) Hypertension Qualifiers: Hypertension type: essential hypertension Qualified Code(s): I10 - Essential (primary) hypertension
[2018-11-23] MEDS ORDERED: Ringers Solution, Lactated 1,000 ML IVC SCH (08:45)
--- NOTE | 2018-11-23 09:05 | General Surgery Consult Note ---
Date of Encounter: 11/23/18 Time of Encounter: 09:02 Assessment and Plan (1) Colonic mass Current Visit: Yes Status: Acute Constipation and left-sided abdominal pain for approximately the last year. Why states over the last several weeks constipation had been significantly worse in his pain had increased. Patient reports he took laxatives which led to his diarrhea and rectal bleeding. Per , Last colonoscopy reported as January 12, 2014 however records are unavailable for review. We will plan for colonoscopy on 11/24/[address] Cleveland. Bowel prep ordered. Of note, patient is significantly confused and having expressive aphasia. I did telephone the (Brandee) who states patient does not have a diagnosis of dementia however for the last 2 to 3 months he has had intermittent periods of confusion. She states he is typically always able to communicate during these episodes and is oriented. Therefore his baseline is unknown. I did review with the hospitalist are findings of expressive aphasia and confusion. Will defer further workup/treatment to the primary team. Patient did give verbal consent for a colonoscopy. Given his confused state, I did review with his the recommendations, risks, and benefits. She is also agreeable to proceed. A signed consent is placed on the hard chart with witnessed per bedside RN. (2) BRBPR (bright red blood per rectum) Current Visit: Yes Status: Acute History of Present Illness Consult date: 11/22/18 (Dr. Asuncion Cleveland) Reason for consult: other (colon mass) Requesting physician: Juventino Hinojosa History of present illness: Surgery has been consulted for recommendations regarding a possible colon mass and G.I. bleed associated patient's past medical, surgical, social, and family history has been reviewed with the patient at bedside and per telephone (as patient is a poor historian)and updated in the electronic medical record were indicated. Jones is a 78-year-old male who presented on 11/22/2017 for complaints of bright red blood per rectum. He has a history of chronic anticoagulation for atrial fibrillation (Xarelto) (but patient reports he has not taken since 2016) and therefore takes a full dose (325 mg) ASA. He reported lots of clots" during a BM at aprox 2pm 11/22 after he had taken laxatives for constipation. He is not able to elaborate on the length of time constipation and therefore the remainder of his HPI is obtained by his per telephone. She reports he has had con stipation and left side pain for approximately the last year with worsening discomfort in the last several weeks. She states he takes intermittent laxatives for this but she is unsure what kind. She reports that he had a colonoscopy on January 12, [email or web address] but cannot remember the outcome of the co lonoscopy (per record review, the status confirmed). She further reports a history of atrial fibrillation for which he was taking Xarelto but due to their inability to afford it, he has not taken this since early 2017. He has been taking 325 mg of aspirin daily. His reports episodes of confusion at home for the last 2 to 3 months. She states this is been intermittent and he is typically able to be reoriented. They have not sought treatment or diagnosis for this. She denies any diagnosis of dementia. Presently, he does deny abdominal discomfort. He endorses bright red blood clots per rectum as detailed above. He is not able to elaborate on any further review of systems. He had a CT of the abdomen and pelvis which noted mass lesion involving the descending colon Past Med Surg Social Fam HX - Past Medical History Source: old records reviewed, obtained from family Medical history: atrial fibrillation, coronary artery disease, hypertension Additional medical history: HTN, HLP,Vertigo - Past Surgical History Additional surgical history: Hemorrhoidectomy 1974. colonoscopy 2013 - Social History Smoking Status: Former smoker Smokeless Tobacco Status: No Alcohol use: none Drug use: none Occupational status: retired Current living situation: Home - Independent Activity Level: Independent ambulation Medications and Allergies Cholecalciferol (D-3) [Vitamin D] 2,000 unit PO DAILY 03/14/16 [History] Lisinopril [Zestril] 40 mg PO DAILY 03/14/16 [History] Mv,Minerals/FA/Lycopene/Ginkgo [One Daily For Men 50+ Adv Tab] 1 tab PO DAILY 03/14/16 [History] amLODIPine [Norvasc] 10 mg PO DAILY 03/14/16 [History] Metoprolol [Lopressor] 50 mg PO BID #60 tablet 03/15/16 [Rx] Aspirin 325 mg PO DAILY 11/23/18 [History] Allergy/AdvReac Type Severity Reaction Status Date / Time No Known Allergies Allergy Verified 11/22/18 13:17 Review of Systems ROS unobtainable: due to mental status All systems PM: The remainder of the systems were reviewed and are negative General Surgery Exam Initial Vital Signs Temp Pulse Resp BP Pulse Ox 97.9 F 97 16 138/79 96 11/22/18 13:13 11/22/18 13:13 11/22/18 13:13 11/22/18 13:13 11/22/18 13:13 - General physical appearance no distress, other (Sitting upright at edge of bed) - Eyes normal ocular movement - ENT normal nares, normal mucosa, atraumatic, normocephalic - Neck trachea midline - Respiratory normal expansion, clear to auscultation - Cardiovascular Cardiovascular exam: Present: irregular rhythm, murmurs, distant heart sounds - Abdomen Abdomen general surgery: Present: bowel sounds present, soft, non tender - Integumentary Integumentary general surgery: Present: warm and dry - Neurologic Present: disoriented, other (Expressive aphasia) - Musculoskeletal Present: normal posture - Psychiatric Psychiatric general surgery: Present: oriented to person, other (Expressive aphasia. Disoriented to place and time) Exam Initial Vital Signs Temp Pulse Resp BP Pulse Ox 97.9 F 97 16 138/79 96 11/22/18 13:13 11/22/18 13:13 11/22/18 13:13 11/22/18 13:13 11/22/18 13:13 Results - Labs 11/23/18 09:27 11/23/18 09:27 Abnormal lab results Hgb 12.8 g/dL (12.9-16.9) L 11/22/18 22:20 MCV 82.5 fL (83.0-100.0) L 11/22/18 15:46 MCH 26.7 pg (28.0-33.3) L 11/22/18 15:46 PT 12.7 Seconds (9.4-12.1) H 11/22/18 15:46 Glucose 110 mg/dL (70-105) H 11/22/18 15:46 POC Glucose 120 mg/dL (70-99) H 11/23/18 05:02 Lipase 7 Units/L (11-82) L 11/22/18 15:46 Ur Leukocyte Esterase Small (Negative) H 11/23/18 01:30 Urine Microscopic WBC 5-15 per hpf (0-3) H 11/23/18 01:30 Ur Squamous Epith Cells Moderate per lpf (None-Few) H 11/23/18 01:30 Ur Culture Indicated? YES (NO) A 11/23/18 01:30 Stool Occult Bld Scrn Positive (Negative) A 11/22/18 16:29 Diabetes panel 11/22/18 Range/Units 15:46 Sodium 139 (136-145) mEq/L Potassium 3.5 (3.5-5.1) mEq/L Chloride 105 (98-107) mEq/L Carbon Dioxide 26 (23-29) mEq/L BUN 19 (8-23) mg/dL Creatinine 0.86 (0.70-1.30) mg/dL Glucose 110 H (70-105) mg/dL Calcium 8.9 (8.6-10.3) mg/dL AST 18 (13-39) Units/L ALT 10 (7-52) Units/L Alkaline Phosphatase 46 (34-104) Units/L Albumin 3.9 (3.5-5.7) g/dL Calcium panel 11/22/18 Range/Units 15:46 Calcium 8.9 (8.6-10.3) mg/dL Albumin 3.9 (3.5-5.7) g/dL Pituitary panel 11/22/18 Range/Units 15:46 Sodium 139 (136-145) mEq/L Potassium 3.5 (3.5-5.1) mEq/L Chloride 105 (98-107) mEq/L Carbon Dioxide 26 (23-29) mEq/L BUN 19 (8-23) mg/dL Creatinine 0.86 (0.70-1.30) mg/dL Glucose 110 H (70-105) mg/dL Calcium 8.9 (8.6-10.3) mg/dL Adrenal panel 11/22/18 Range/Units 15:46 Sodium 139 (136-145) mEq/L Potassium 3.5 (3.5-5.1) mEq/L Chloride 105 (98-107) mEq/L Carbon Dioxide 26 (23-29) mEq/L BUN 19 (8-23) mg/dL Creatinine 0.86 (0.70-1.30) mg/dL Glucose 110 H (70-105) mg/dL Calcium 8.9 (8.6-10.3) mg/dL Total Bilirubin 0.9 (0.3-1.0) mg/dL AST 18 (13-39) Units/L ALT 10 (7-52) Units/L Alkaline Phosphatase 46 (34-104) Units/L Albumin 3.9 (3.5-5.7) g/dL All other labs normal. - Imaging CT scan - abdomen: report reviewed, image reviewed CT scan - pelvis: report reviewed, image reviewed Consult Discharge Plan - Plan Referrals: Pelon Mustafa MD [Primary Care Provider] -
[2018-11-23 09:45] LABS: Basophils % 0.2 %; Eosinophils # 0.1 K/mcL (0.0-0.6); Eosinophils % 1.1 %; Hemoglobin 11.8 g/dL (12.9-16.9); Immature Granulocytes % 0.3 % (0-4); Mean Corpuscular HGB Conc 32.8 g/dL (31.6-35.5); Mean Corpuscular Hemoglobin 27.3 pg (28.0-33.3); Mean Corpuscular Volume 83.1 fL (83.0-100.0); Monocytes # 0.7 K/mcL (0.0-1.3); Neutrophils # 8.2 K/mcL (1.6-8.9); Platelet Count 224 K/mcL (140-400); Red Blood Count 4.33 M/mcL (4.19-5.50); Red Cell Distribution Width 13.9 % (11.5-14.5); Segmented Neutrophils % 81.4 %
[2018-11-23 10:07] LABS: BUN/Creatinine Ratio 22 (6-26); Blood Urea Nitrogen 18 mg/dL (8-23); Calcium 9.1 mg/dL (8.6-10.3); Carbon Dioxide 27 mEq/L (23-29); Chloride 106 mEq/L (98-107); Glucose 122 mg/dL (70-105); Osmolality,Calculated 293 (280-300); Potassium 3.9 mEq/L (3.5-5.1); Sodium 140 mEq/L (136-145); eGFR For Non-African Americans > 60 (> 60)
[2018-11-23] MEDS ORDERED: Haloperidol Lactate 5 MG/ML VIAL IVP ONE (21:33)
[2018-11-23] MEDS ORDERED: Haloperidol Lactate 5 MG/ML VIAL ONE (21:38)
[2018-11-23] MEDS ORDERED: diazePAM 5 MG TABLET PO ONE (21:57)
[2018-11-23] MEDS ORDERED: diazePAM 10 MG/2 ML SYRINGE IVP ONE ×2 (22:19→22:49)
[2018-11-24] MEDS: 0.9 % Sodium Chloride 1,000 ML IVC SCH (01:38)
--- NOTE | 2018-11-24 02:48 | Event Note ---
Date of Encounter: 11/23/18 Time of Encounter: 21:31 Alerted by patient's nurse VASYL Hsu that patient who was for rectal bleeding was showing signs of confusion and trying to leave. Nurse reported patient was also becoming combative and resistant to care. IVP Haldol 3 mg once ordered. Notified by nurse at 21:50 for the patient continued to be combative. Went to see patient immediately who was pacing in the room and obviously restless. Patient confused to where he was and was wanting to leave. Instructed nurse to call patient's . called and spoke to patient on the phone for approximately 10 minutes. Patient was unable to be redirected by . I called and spoke to her regarding patient's confusion. reported that patient was recently having difficulty finding words. Nurse reported that the pt. showed mild confusion the previous night but was not combative or agitated like tonight. 2.5 mg IVP Valium ordered and administered. Patient continued become combative scratching Air Drier and trying to kick staff. 4-point soft restraints ordered and placed on patient. Additional dose of 2.5 mg IVP Valium ordered if needed, however patient became calm at approximately 01:18 so patient's restraints were removed but sitter remains. Nurse instructed to leave restraints off while patient is calm. Nurse instructed to continue to monitor patient very closely and notify me immediately if any adverse changes or behavioral issues.
[2018-11-24 07:40] LABS: Basophils # 0.1 K/mcL (0.0-0.2); Basophils % 0.5 %; Eosinophils # 0.2 K/mcL (0.0-0.6); Eosinophils % 1.6 %; Hematocrit 31.3 % (37.5-50.1); Hemoglobin 10.5 g/dL (12.9-16.9); Immature Granulocytes % 1.1 % (0-4); Lymphocytes # 1.6 K/mcL (0.6-4.6); Lymphocytes % 17.2 %; Mean Corpuscular HGB Conc 33.5 g/dL (31.6-35.5); Mean Corpuscular Hemoglobin 27.3 pg (28.0-33.3); Mean Corpuscular Volume 81.5 fL (83.0-100.0); Mean Platelet Volume 11.4 fL (9.4-12.4); Monocytes # 0.9 K/mcL (0.0-1.3); Monocytes % 9.3 %; Neutrophils # 6.4 K/mcL (1.6-8.9); Platelet Count 196 K/mcL (140-400); Red Blood Count 3.84 M/mcL (4.19-5.50); Red Cell Distribution Width 13.6 % (11.5-14.5); Segmented Neutrophils % 70.3 %
--- NOTE | 2018-11-24 08:14 | Internal Med Progress Note ---
<Eleonora Rosales N - Last Filed: 11/24/18 23:59> Hospitalist Progress Note - Encounter Date of Encounter: 11/24/18 Time of Encounter: 08:14 - Subjective Interval History: Mr. Pollack was seen and evaluated at the bedside. Review of overnight events was significant for agitation requiring use of chemical and physical restraints, as well as a sitter. On exam this morning, patient appears restless and is mildly agitated. He repeatedly tries to get up and leave the room, though he does return to the bed with minimal effort. He is unable to state his current location, though he is able to identify the current year. He appears to be adverse to answering direct questions; however, he does endorse no acute complaints, concerns, or discomfort. - Exam Vitals: Temp Pulse Resp BP Pulse Ox 97.9 F 94 16 149/79 100 11/24/18 07:41 11/24/18 07:41 11/24/18 07:41 11/24/18 07:41 11/24/18 07:41 Exam: GENERAL: Adult male seated on the side of the bed. He appears restless. HEENT: Atraumatic and normocephalic. CARDIOVASCULAR: Regular rate and rhythm. S1 and S2 present. RESPIRATORY: Clear to auscultation bilaterally. Chest rises and falls symmetrically with respiration. No accessory muscle use noted. GASTROINTESTINAL: Abdomen is soft, nontender, nondistended. Small amount of dark red blood present on bedsheets. EXTREMITIES: No clubbing, cyanosis, or edema present. NEUROLOGIC: Patient is slow to answer questions and appears to avoid giving specific answers. He is agitated, but does not appear violent and is easily redirected. - Assessment and Plan (1) BRBPR (bright red blood per rectum) Current Visit: Yes Status: Acute Assessment and Plan: Suspect colonic mass vs. diverticulosis based on CT of the abdomen and pelvis. Patient has remained hemodynamically stable throughout the day, though morning CBC did demonstrate a decrease in hemoglobi. Patient underwent colonoscopy this afternoon, which demonstrated red blood throughout the entirety of the examined colon. No specimens were collected, and repeat colonscopy was recommended in 2 months. - Continue to monitor H&H Q8H; plan for transfusion if hemoglobin is <8 or if he becomes symptomatic - Will contact surgery early tomorrow morning for further recommendations and management planning (2) Colonic mass Current Visit: Yes Status: Acute Assessment and Plan: Concern for possible malignancy. Patient reports worsening constipation over the last year. - Plan as above. (3) Left ureteral stone Current Visit: Yes Status: Acute Assessment and Plan: CT of the abdomen/pelvis demonstrated a partially obstructing 5x6mm calculus in the proximal left ureter. Patient has been evaluated by urology; no immediate intervention is indicated. - Continue management per urology recommendations. - Recommend patient follow up in the outpatient clinic after discharge for definitive management. (4) Hydronephrosis Current Visit: Yes Status: Acute Assessment and Plan: Likely secondary to left ureteral stone. - Plan as above. (5) Atrial fibrillation Current Visit: Yes Status: Acute Assessment and Plan: Resumed home dose of metoprolol today. Patient reportedly does not take his anticoagulant as prescribed; due to acute bleed, will hold chemical anticoagulation at this time. (6) Hypertension Current Visit: No Status: Acute Assessment and Plan: - Continue metoprolol 50mg BID. (7) DVT prophylaxis Current Visit: No Status: Acute Assessment and Plan: - SCDs. (8) Acute delirium Current Visit: Yes Status: Acute Assessment and Plan: Staff reports that patient's has noticed increasing intermittent confusion over the last year; suspect early underlying dementia. Patient did require both haldol and valium last night, as well as physical restraints due to agitation and violent behavior. He was reportedly unable to be reoriented, even by his , who was contacted by telephone. Patient required continued presence of bedside sitter throughout the morning for reorientation and safety. - Continue use of sitter PRN - Consider haldol if patient becomes agitated overnight; avoid use of valium or other benzodiazepines if possible - Time Spent with Patient Total time spent is greater than 50% in coordination of care (as documented) at patient's floor/unit and/or counseling patient: Internal Medicine: Result - Labs CBC & Chem 7: 11/24/18 23:31 11/23/18 09:27 Labs: Short CBC 11/23/18 11/24/18 Range/Units 09:27 07:24 WBC 10.1 9.2 (4.3-11.1) K/mcL Hgb 11.8 L 10.5 L (12.9-16.9) g/dL Hct 36.0 L 31.3 L (37.5-50.1) % Plt Count 224 196 (140-400) K/mcL Neutrophils # 8.2 6.4 (1.6-8.9) K/mcL BMP 11/23/18 09:27 Sodium 140 Potassium 3.9 Chloride 106 Carbon Dioxide 27 BUN 18 Creatinine 0.81 Glucose 122 H Calcium 9.1 - ABG Interpretation ABG results: PT/INR, D-dimer PT 12.7 Seconds (9.4-12.1) H 11/22/18 15:46 Consult Discharge Plan - Plan Referrals: Pelon Mustafa MD [Primary Care Provider] - <Carlos Balderas - Last Filed: 11/25/18 07:56> Hospitalist Progress Note - Encounter Date of Encounter: 11/25/18 - Exam Vitals: Temp Pulse Resp BP Pulse Ox 98.4 F 88 14 136/75 97 11/25/18 06:11 11/25/18 06:11 11/25/18 06:11 11/25/18 06:11 11/25/18 06:11 - Assessment and Plan (1) Hypertension Current Visit: No Status: Acute (2) DVT prophylaxis Current Visit: No Status: Acute (3) Colonic mass Current Visit: Yes Status: Acute (4) Hydronephrosis Current Visit: Yes Status: Acute (5) BRBPR (bright red blood per rectum) Current Visit: Yes Status: Acute (6) Atrial fibrillation Current Visit: Yes Status: Acute (7) Left ureteral stone Current Visit: Yes Status: Acute (8) Acute delirium Current Visit: Yes Status: Acute - Time Spent with Patient Total time spent is greater than 50% in coordination of care (as documented) at patient's floor/unit and/or counseling patient: Internal Medicine: Result - Labs CBC & Chem 7: 11/25/18 06:58 11/25/18 06:58 Labs: Short CBC 11/24/18 11/25/18 11/25/18 Range/Units 23:31 06:58 06:58 WBC 7.5 (4.3-11.1) K/mcL Hgb 10.2 L 10.3 L 10.5 L (12.9-16.9) g/dL Hct 30.3 L 30.5 L 31.9 L (37.5-50.1) % Plt Count 217 (140-400) K/mcL Neutrophils # 5.4 (1.6-8.9) K/mcL BMP 11/25/18 06:58 Sodium 140 Potassium 3.1 L Chloride 108 H Carbon Dioxide 24 BUN 11 Creatinine 0.69 L Glucose 86 Calcium 8.6 - ABG Interpretation ABG results: PT/INR, D-dimer PT 12.7 Seconds (9.4-12.1) H 11/22/18 15:46 - Attending Attestation I examined this patient and my medical decision-making was reviewed with the Resident Physician. I agree with the documented findings, disposition and t reatment plan as described except to the extent set forth below. <Eleonora Rosales - Last Filed: 11/24/18 23:59> (4) Hydronephrosis Qualifiers: Hydronephrosis type: unspecified Qualified Code(s): N13.30 - Unspecified hydronephrosis (5) Atrial fibrillation Qualifiers: Atrial fibrillation type: unspecified Qualified Code(s): I48.91 - Unspecified atrial fibrillation (6) Hypertension Qualifiers: Hypertension type: essential hypertension Qualified Code(s): I10 - Essential (primary) hypertension <Carlos Balderas - Last Filed: 11/25/18 07:56> (1) Hypertension Qualifiers: Hypertension type: essential hypertension Qualified Code(s): I10 - Essential (primary) hypertension (4) Hydronephrosis Qualifiers: Hydronephrosis type: unspecified Qualified Code(s): N13.30 - Unspecified hydronephrosis (6) Atrial fibrillation Qualifiers: Atrial fibrillation type: unspecified Qualified Code(s): I48.91 - Unspecified atrial fibrillation
[2018-11-24] MEDS ORDERED: *HR* FentaNYL (PF) 100 MCG/2 ML VIAL ONE (16:39)
[2018-11-24] MEDS ORDERED: *HR* Midazolam HCl 5 MG/5 ML VIAL IVP ONE (16:39)
[2018-11-24 23:42] LABS: Hematocrit 30.3 % (37.5-50.1)
[2018-11-24 23:44] LABS: Hemoglobin 10.2 g/dL (12.9-16.9)
[2018-11-25] MEDS: 0.9 % Sodium Chloride 1,000 ML IVC SCH (01:05)
[2018-11-25 07:30] LABS: Hematocrit 31.9 % (37.5-50.1); Hemoglobin 10.5 g/dL (12.9-16.9)
[2018-11-25 07:31] LABS: Basophils % 0.5 %; Eosinophils # 0.2 K/mcL (0.0-0.6); Eosinophils % 2.1 %; Hematocrit 30.5 % (37.5-50.1); Hemoglobin 10.3 g/dL (12.9-16.9); Immature Granulocytes % 0.3 % (0-4); Lymphocytes # 1.3 K/mcL (0.6-4.6); Lymphocytes % 17.2 %; Mean Corpuscular HGB Conc 33.8 g/dL (31.6-35.5); Mean Corpuscular Hemoglobin 27.6 pg (28.0-33.3); Mean Corpuscular Volume 81.8 fL (83.0-100.0); Mean Platelet Volume 11.2 fL (9.4-12.4); Monocytes # 0.6 K/mcL (0.0-1.3); Monocytes % 7.7 %; Neutrophils # 5.4 K/mcL (1.6-8.9); Platelet Count 217 K/mcL (140-400); Red Blood Count 3.73 M/mcL (4.19-5.50); Red Cell Distribution Width 13.6 % (11.5-14.5); Segmented Neutrophils % 72.2 %
[2018-11-25 07:45] LABS: BUN/Creatinine Ratio 16 (6-26); Blood Urea Nitrogen 11 mg/dL (8-23); Calcium 8.6 mg/dL (8.6-10.3); Carbon Dioxide 24 mEq/L (23-29); Chloride 108 mEq/L (98-107); Glucose 86 mg/dL (70-105); Osmolality,Calculated 289 (280-300); Potassium 3.1 mEq/L (3.5-5.1); Sodium 140 mEq/L (136-145); eGFR For Non-African Americans > 60 (> 60)
--- NOTE | 2018-11-25 08:44 | Internal Med Progress Note ---
Hospitalist Progress Note - Encounter Date of Encounter: 11/25/18 Time of Encounter: 08:44 - Subjective Interval History: Mr. Pollack was seen and evaluated at the bedside. Review of overnight events was significant for agitation requiring use of chemical and physical restraints, as well as a sitter. On exam this morning, patient appears restless and is mildly agitated. He repeatedly tries to get up and leave the room, though he does return to the bed with minimal effort. He is unable to state his current location, though he is able to identify the current year. He appears to be adverse to answering direct questions; however, he does endorse no acute complaints, concerns, or discomfort. - Exam Vitals: Temp Pulse Resp BP Pulse Ox 98.4 F 88 14 136/75 97 11/25/18 06:11 11/25/18 06:11 11/25/18 06:11 11/25/18 06:11 11/25/18 06:11 - Assessment and Plan (1) BRBPR (bright red blood per rectum) Current Visit: Yes Status: Acute (2) Acute delirium Current Visit: Yes Status: Acute (3) Colonic mass Current Visit: Yes Status: Acute (4) Left ureteral stone Current Visit: Yes Status: Acute (5) Hydronephrosis Current Visit: Yes Status: Acute (6) Atrial fibrillation Current Visit: Yes Status: Acute (7) Hypertension Current Visit: No Status: Acute (8) DVT prophylaxis Current Visit: No Status: Acute - Time Spent with Patient Total time spent is greater than 50% in coordination of care (as documented) at patient's floor/unit and/or counseling patient: Internal Medicine: Result - Labs CBC & Chem 7: 11/25/18 06:58 11/25/18 06:58 Labs: Short CBC 11/24/18 11/25/18 11/25/18 Range/Units 23:31 06:58 06:58 WBC 7.5 (4.3-11.1) K/mcL Hgb 10.2 L 10.3 L 10.5 L (12.9-16.9) g/dL Hct 30.3 L 30.5 L 31.9 L (37.5-50.1) % Plt Count 217 (140-400) K/mcL Neutrophils # 5.4 (1.6-8.9) K/mcL BMP 11/25/18 06:58 Sodium 140 Potassium 3.1 L Chloride 108 H Carbon Dioxide 24 BUN 11 Creatinine 0.69 L Glucose 86 Calcium 8.6 - ABG Interpretation ABG results: PT/INR, D-dimer PT 12.7 Seconds (9.4-12.1) H 11/22/18 15:46 Consult Discharge Plan - Plan Referrals: Pelon Mustafa MD [Primary Care Provider] - (5) Hydronephrosis Qualifiers: Hydronephrosis type: unspecified Qualified Code(s): N13.30 - Unspecified hydronephrosis (6) Atrial fibrillation Qualifiers: Atrial fibrillation type: unspecified Qualified Code(s): I48.91 - Unspecified atrial fibrillation (7) Hypertension Qualifiers: Hypertension type: essential hypertension Qualified Code(s): I10 - Essential (primary) hypertension
[2018-11-25] MEDS ORDERED: Pantoprazole 40 MG VIAL IVP SCH (09:00)
--- NOTE | 2018-11-25 10:09 | Urology Progress Note ---
<Jayna Duncan N - Last Filed: 11/25/18 10:06> Date of Encounter: 11/25/18 Time of Encounter: 09:30 - Assessment and Plan (1) Left ureteral stone Current Visit: Yes Status: Acute Assessment and plan: Patient is a 78-year-old male who presents with a left ureteral stone. Discussed proceeding with ureteral stone extraction as an inpatient versus scheduling as an outpatient. Patient does not wish to remain admitted to the hospital any longer than is necessary, and he prefers to schedule an outpatient stone extraction. Vital signs are currently stable and afebrile. Reviewed reassuring renal function, creatinine 0.69. I will discuss patient's preference with Dr. Lafleur who will reevaluate patient later today. (2) Hydronephrosis Current Visit: Yes Status: Acute Qualifiers: Hydronephrosis type: unspecified Qualified Code(s): N13.30 - Unspecified hydronephrosis (3) Hematochezia Current Visit: Yes Status: Acute Progress Note Subjective: no new complaints Narrative: Patient seen and examined sitting upright in bed in no apparent distress. Reviewed internal medicine report stating patient has experienced increasing agitation. Patient underwent reassuring colonoscopy and is recommended to follow up within 2 months for a repeat colonoscopy. Patient denies any flank pain, dysuria, fever, chills, urinary urgency, frequency or hesitancy. Objective Initial Vital Signs Temp Pulse Resp BP Pulse Ox 97.9 F 97 16 138/79 96 11/22/18 13:13 11/22/18 13:13 11/22/18 13:13 11/22/18 13:13 11/22/18 13:13 - General physical appearance Present: well developed, no distress, no pain - Respiratory Present: normal expansion, normal respiratory effort - Abdomen Present: soft, non tender - Integumentary Present: no rash, no abnormal pigmentation - Musculoskeletal Present: normal posture - Psychiatric Present: oriented to time, oriented to person, oriented to place, speech is normal, memory intact - Labs 11/25/18 06:58 11/25/18 06:58 Diabetes panel 11/25/18 Range/Units 06:58 Sodium 140 (136-145) mEq/L Potassium 3.1 L (3.5-5.1) mEq/L Chloride 108 H (98-107) mEq/L Carbon Dioxide 24 (23-29) mEq/L BUN 11 (8-23) mg/dL Creatinine 0.69 L (0.70-1.30) mg/dL Glucose 86 (70-105) mg/dL Calcium 8.6 (8.6-10.3) mg/dL Calcium panel 11/25/18 Range/Units 06:58 Calcium 8.6 (8.6-10.3) mg/dL Pituitary panel 11/25/18 Range/Units 06:58 Sodium 140 (136-145) mEq/L Potassium 3.1 L (3.5-5.1) mEq/L Chloride 108 H (98-107) mEq/L Carbon Dioxide 24 (23-29) mEq/L BUN 11 (8-23) mg/dL Creatinine 0.69 L (0.70-1.30) mg/dL Glucose 86 (70-105) mg/dL Calcium 8.6 (8.6-10.3) mg/dL Adrenal panel 11/25/18 Range/Units 06:58 Sodium 140 (136-145) mEq/L Potassium 3.1 L (3.5-5.1) mEq/L Chloride 108 H (98-107) mEq/L Carbon Dioxide 24 (23-29) mEq/L BUN 11 (8-23) mg/dL Creatinine 0.69 L (0.70-1.30) mg/dL Glucose 86 (70-105) mg/dL Calcium 8.6 (8.6-10.3) mg/dL Consult Discharge Plan - Plan Instructions: Gastrointestinal Bleeding (DC), Rectal Bleeding (DC), Kidney Stones (DC), Safe Use of Anticoagulants (DC) Additional Instructions: Continue aspirin at this time however do not take several toe or Coumadin for at least 7 days. He may restart these medications after that time, however if she began to notice unusually dark, black, tarry stools or bright red blood in her stool at any time you should stop these medications and return to the emergency room immediately. Follow-up with urology for outpatient management of left ureteral stone. If you have large amounts of blood in your urine or pain, return to the ED. Follow-up with Surgery for repeat colonoscopy in 2mo for resolution of diverticular bleeding. Continue other medications as prescribed. Take Omeprazole 20mg each morning with meals. Talk to your primary care provider regarding whether you should continue this medication in the future. Follow-up with your primary care provider in 5-7 days. Referrals: Pelon Mustafa MD [Primary Care Provider] - 12/02/18 1:15 pm Keyur Cleveland DO [Partnered Physician] - 01/26/19 9:10 am Jareth Lafleur MD [Partnered Physician] - 11/27/18 8:30 am Prescriptions: RX: Metoprolol [Lopressor] 50 mg PO BID 30 Days #60 tablet RX: Omeprazole 20 mg PO DAILY #30 tablet.dr <Jareth Lafleur - Last Filed: 11/25/18 17:05> Date of Encounter: 11/25/18 - Assessment and Plan (1) Left ureteral stone Current Visit: Yes Status: Acute Assessment and plan: Agree with physician assistance assessment and plan. Patient remained stable. Outpatient ureteroscopic stone extraction planned. Will contact patient after discharge Objective Initial Vital Signs Temp Pulse Resp BP Pulse Ox 97.9 F 97 16 138/79 96 11/22/18 13:13 11/22/18 13:13 11/22/18 13:13 11/22/18 13:13 11/22/18 13:13 - Labs 11/25/18 14:48 11/25/18 06:58 Diabetes panel 11/25/18 Range/Units 06:58 Sodium 140 (136-145) mEq/L Potassium 3.1 L (3.5-5.1) mEq/L Chloride 108 H (98-107) mEq/L Carbon Dioxide 24 (23-29) mEq/L BUN 11 (8-23) mg/dL Creatinine 0.69 L (0.70-1.30) mg/dL Glucose 86 (70-105) mg/dL Calcium 8.6 (8.6-10.3) mg/dL Calcium panel 11/25/18 Range/Units 06:58 Calcium 8.6 (8.6-10.3) mg/dL Pituitary panel 11/25/18 Range/Units 06:58 Sodium 140 (136-145) mEq/L Potassium 3.1 L (3.5-5.1) mEq/L Chloride 108 H (98-107) mEq/L Carbon Dioxide 24 (23-29) mEq/L BUN 11 (8-23) mg/dL Creatinine 0.69 L (0.70-1.30) mg/dL Glucose 86 (70-105) mg/dL Calcium 8.6 (8.6-10.3) mg/dL Adrenal panel 11/25/18 Range/Units 06:58 Sodium 140 (136-145) mEq/L Potassium 3.1 L (3.5-5.1) mEq/L Chloride 108 H (98-107) mEq/L Carbon Dioxide 24 (23-29) mEq/L BUN 11 (8-23) mg/dL Creatinine 0.69 L (0.70-1.30) mg/dL Glucose 86 (70-105) mg/dL Calcium 8.6 (8.6-10.3) mg/dL
--- NOTE | 2018-11-25 11:21 | Discharge Summary ---
<Eleonora Rosales N - Last Filed: 11/25/18 11:21> Orders not resulted at time of discharge: Pending orders 11/25/18 15:00 Hemoglobin and Hematocrit [HEME] Q8H Date of Encounter: 11/25/18 Time of Encounter: 11:21 - Discharge Diagnosis (1) BRBPR (bright red blood per rectum) Status: Acute (2) Acute delirium Status: Acute (3) Colonic mass Status: Acute (4) Left ureteral stone Status: Acute (5) Hydronephrosis Status: Acute Qualifiers: Hydronephrosis type: unspecified Qualified Code(s): N13.30 - Unspecified hydronephrosis (6) Atrial fibrillation Status: Acute Qualifiers: Atrial fibrillation type: unspecified Qualified Code(s): I48.91 - Unspecified atrial fibrillation (7) Hypertension Status: Acute Qualifiers: Hypertension type: essential hypertension Qualified Code(s): I10 - Essential (primary) hypertension (8) DVT prophylaxis Status: Acute Hospital course: Mr. Pollack is a 78 year old male - Time Spent with Patient Total time spent providing and/or coordinating discharge services: - Discharge Medications Prescriptions: RX: Metoprolol [Lopressor] 50 mg PO BID 30 Days #60 tablet RX: Omeprazole 20 mg PO DAILY #30 tablet. Home Medications: RX: Cholecalciferol (D-3) [Vitamin D] 2,000 unit PO DAILY 03/14/16 [History] RX: Lisinopril [Zestril] 40 mg PO DAILY 03/14/16 [History] RX: Mv,Minerals/FA/Lycopene/Ginkgo [One Daily For Men 50+ Adv Tab] 1 tab PO DAILY 03/14/16 [History] RX: amLODIPine [Norvasc] 5 mg PO BID 03/14/16 [History] RX: Aspirin 325 mg PO DAILY 11/23/18 [History] RX: Polyethylene Glycol 3350 [MiraLAX] 17 gm PO DAILY PRN 11/23/18 [History] RX: Metoprolol [Lopressor] 50 mg PO BID 30 Days #60 tablet 11/25/18 [Rx] RX: Omeprazole 20 mg PO DAILY #30 tablet. 11/25/18 [Rx] Allergies/Adverse Reactions: Allergy/AdvReac Type Severity Reaction Status Date / Time No Known Allergies Allergy Verified 11/22/18 13:17 Date of admission: 11/22/18 20:48 Primary care physician: Pelon Mustafa MD Consults: 11/22/18 17:38 Consult to Surgery [CONS] Stat Consulting Provider: [facility] Reason for Consult: colon mass lesion Time Notified: 17:39 Call Completed: Yes Consult to Urology [CONS] Stat Consulting Provider: [facility] Reason for Consult: obstructive uropathy, left hydro, kidney stone Call Completed: Yes - Constitutional Vitals: Temp Pulse Resp BP Pulse Ox 97.9 F 86 14 142/83 98 11/25/18 11:07 11/25/18 11:07 11/25/18 11:07 11/25/18 11:07 11/25/18 11:07 General appearance: Present: A&O X 3, answers questions appropriately - Patient Status Disposition: Home, Self-Care Condition: Good - Discharge Instructions Instructions: Gastrointestinal Bleeding (DC), Rectal Bleeding (DC), Kidney Stones (DC), Safe Use of Anticoagulants (DC) Follow Up With: Pelon Mustafa MD [Primary Care Provider] - 12/02/18 1:15 pm Keyur Cleveland DO [Partnered Physician] - 01/26/19 9:10 am Jareth Lafleur MD [Partnered Physician] - 11/27/18 8:30 am Additional Instructions: Continue aspirin at this time however do not take several toe or Coumadin for at least 7 days. He may restart these medications after that time, however if she began to notice unusually dark, black, tarry stools or bright red blood in her stool at any time you should stop these medications and return to the emergency room immediately. Follow-up with urology for outpatient management of left ureteral stone. If you have large amounts of blood in your urine or pain, return to the ED. Follow-up with Surgery for repeat colonoscopy in 2mo for resolution of diverticular bleeding. Continue other medications as prescribed. Take Omeprazole 20mg each morning with meals. Talk to your primary care provider regarding whether you should continue this medication in the future. Follow-up with your primary care provider in 5-7 days. <Abhilash Cherry M - Last Filed: 11/25/18 16:59> Orders not resulted at time of discharge: Pending orders 11/25/18 15:00 Hemoglobin and Hematocrit [HEME] Q8H Date of Encounter: 11/25/18 - Discharge Diagnosis (1) BRBPR (bright red blood per rectum) Priority: Primary Status: Acute (2) Hydronephrosis Priority: Primary Status: Acute Qualifiers: Hydronephrosis type: unspecified Qualified Code(s): N13.30 - Unspecified hydronephrosis (3) Hypertension Priority: Secondary Status: Acute Qualifiers: Hypertension type: essential hypertension Qualified Code(s): I10 - Essential (primary) hypertension (4) Left ureteral stone Priority: Primary Status: Acute (5) Acute delirium Priority: Primary Status: Acute (6) Atrial fibrillation Priority: Secondary Status: Acute Qualifiers: Atrial fibrillation type: unspecified Qualified Code(s): I48.91 - Unspecified atrial fibrillation Hospital course: Mr. Pollack is a 78 year old male - Time Spent with Patient Total time spent providing and/or coordinating discharge services: Date of admission: 11/22/18 20:48 Primary care physician: Pelon Mustafa MD Consults: 11/22/18 17:38 Consult to Surgery [CONS] Stat Consulting Provider: [facility] Reason for Consult: colon mass lesion Time Notified: 17:39 Call Completed: Yes Consult to Urology [CONS] Stat Consulting Provider: [facility] Reason for Consult: obstructive uropathy, left hydro, kidney stone Call Completed: Yes - Constitutional Vitals: Temp Pulse Resp BP Pulse Ox 97.9 F 86 14 142/83 98 11/25/18 11:07 11/25/18 11:07 11/25/18 11:07 11/25/18 11:07 11/25/18 11:07 Exam: Gen: Vitals noted. No acute distress. Eyes: anicteric sclerae, moist conjunctivae; no lid-lag; Pupils equal and reactive to light HENT: Atraumatic; oropharynx clear with moist mucous membranes and no mucosal ulcerations; normal hard and soft palate Neck: Trachea midline; supple, no thyromegaly or lymphadenopathy Cardiac: RRR, no murmur, +S1/S2 Pulmonary: CTA bilaterally, no wheezes, rales or rhonchi, equal chest expansion Abdomen: soft, nontender, no guarding. No masses or hepatosplenomegaly MSK: ROM intact, no joint swelling noted Extremities: no BLE edema, nontender calf, no cyanosis or clubbing Skin: Normal temperature, turgor and texture; no rash, ulcers or subcutaneous nodules Neuro: moves all extremities, no focal deficits. Psych: Appropriate mood and behavior. A&Ox3 - Attending Attestation I examined this patient and my medical decision-making was reviewed with the Resident Physician. I agree with the documented discharge plan as described. GEN: NAD CVS: RRR. S1, S2, No m/r/g RESP: CTAB ABD: Soft, NT, ND, +BS EXT: No edema. 2+ DP. No rashes NEURO: Nonfocal Addendum entered and electronically signed by Eleonora Rosales 11/26/18 14:30: Discharge completed by Dr. Zimmerman. Please see documentation.
--- NOTE | 2018-11-25 13:15 | General Surgery Progress Note ---
Date of Encounter: 11/25/18 Time of Encounter: 13:00 - Assessment and Plan (1) BRBPR (bright red blood per rectum) Current Visit: Yes Status: Acute Colonoscopy complete 11/24/[address] Cleveland No evidence of colonic mass Suspected that the patient had a diverticular bleed No evidence of current or ongoing bleeding at this time May have regular diet Monitor Hgb/Hct Recommend outpatient follow-up in 2 months for repeat colonoscopy (appointment scheduled) Surgery will sign off at this time. Thank you for allowing us to participate in the care of this patient. Please call with any further questions/concerns. Subjective Patient reports: no new complaints, tolerating a regular diet, voiding w/o difficulty, bowel movement (last BM documented was 11/24/18 and was dark red), afebrile, other (Out of bed to chair with no acute distress) Objective Vital Signs - Last 8 Hours Temp Pulse Resp BP Pulse Ox 11/25/18 11:07 97.9 F 86 14 142/83 98 11/25/18 06:11 98.4 F 88 14 136/75 97 Intake and Output 11/24/18 11/25/18 11/25/18 23:59 07:59 15:59 Output Total 250 / 250 Balance -250 / -250 Output: Urine 250 / 250 Other: Meal npo # Voids 1 1 Blood Glucose* 96 81 197 - General physical appearance well developed, well nourished, no distress, no pain - Eyes normal ocular movement - ENT normal mucosa, atraumatic, normocephalic - Neck Neck exam: trachea midline - Respiratory normal respiratory effort, clear to auscultation - Cardiovascular Cardiovascular exam: Present: RRR - Abdomen Abdomen: Present: bowel sounds present, soft, non tender - Neurologic CN 2-12 grossly intact - Psychiatric oriented to person, oriented to place, speech is normal - Labs 11/25/18 06:58 11/25/18 06:58 Diabetes panel 11/25/18 Range/Units 06:58 Sodium 140 (136-145) mEq/L Potassium 3.1 L (3.5-5.1) mEq/L Chloride 108 H (98-107) mEq/L Carbon Dioxide 24 (23-29) mEq/L BUN 11 (8-23) mg/dL Creatinine 0.69 L (0.70-1.30) mg/dL Glucose 86 (70-105) mg/dL Calcium 8.6 (8.6-10.3) mg/dL Calcium panel 11/25/18 Range/Units 06:58 Calcium 8.6 (8.6-10.3) mg/dL Pituitary panel 11/25/18 Range/Units 06:58 Sodium 140 (136-145) mEq/L Potassium 3.1 L (3.5-5.1) mEq/L Chloride 108 H (98-107) mEq/L Carbon Dioxide 24 (23-29) mEq/L BUN 11 (8-23) mg/dL Creatinine 0.69 L (0.70-1.30) mg/dL Glucose 86 (70-105) mg/dL Calcium 8.6 (8.6-10.3) mg/dL Adrenal panel 11/25/18 Range/Units 06:58 Sodium 140 (136-145) mEq/L Potassium 3.1 L (3.5-5.1) mEq/L Chloride 108 H (98-107) mEq/L Carbon Dioxide 24 (23-29) mEq/L BUN 11 (8-23) mg/dL Creatinine 0.69 L (0.70-1.30) mg/dL Glucose 86 (70-105) mg/dL Calcium 8.6 (8.6-10.3) mg/dL Consult Discharge Plan - Plan Referrals: Pelon Mustafa MD [Primary Care Provider] -
[2018-11-25 15:07] LABS: Hematocrit 35.9 % (37.5-50.1)
[2018-11-25 15:14] LABS: Hemoglobin 11.9 g/dL (12.9-16.9)
--- NOTE | 2018-11-25 15:16 | Discharge Summary ---
<Dominik Zimmerman - Last Filed: 11/25/18 15:39> - NOTES TO OUTPATIENT PROVIDER Notes to Outpatient Provider: Patient presented with rectal bleeding and hematuria. Colonoscopy found no source of bleed - suspect diverticular bleed. Surgery recommends repeat c-scope in 2mo. CT found non-obstructive left ureteral renal calculi - patient will follow with urology outpatient. Per Surgery recs, aspirin is acceptable at time of discharge. Orders not resulted at time of discharge: Pending orders 11/25/18 14:48 Hemoglobin and Hematocrit [HEME] Q8H Date of Encounter: 11/25/18 Time of Encounter: 10:00 - Discharge Diagnosis (1) Diverticular hemorrhage Priority: Primary Status: Acute (2) BRBPR (bright red blood per rectum) Priority: Secondary Status: Acute (3) Left ureteral stone Priority: Secondary Status: Acute (4) Hypertension Priority: Secondary Status: Acute Qualifiers: Hypertension type: essential hypertension Qualified Code(s): I10 - Essential (primary) hypertension (5) Hydronephrosis Priority: Secondary Status: Acute Qualifiers: Hydronephrosis type: unspecified Qualified Code(s): N13.30 - Unspecified hydronephrosis (6) Atrial fibrillation Priority: Secondary Status: Acute Qualifiers: Atrial fibrillation type: unspecified Qualified Code(s): I48.91 - Unspecified atrial fibrillation (7) Acute delirium Priority: Secondary Status: Acute Hospital course: Mr. Pollack is a 78 year old male with history of atrial fibrillation previously on Zarrella toe and aspirin, hypertension, CAD who presented to the ED with concern of bright red blood per rectum and clots in his stool. The patient noticed these things in recent days and was concerned about them so came to the ED. He did have a set of labs in the emergency room which demonstrated acute anemia in comparison to prior, as well as positive fecal occult blood test. He also had a CT at that time which showed mild left hydroureteronephrosis with a partially obstructing proximal left ureteral stone, diverticulosis coli without CT evidence of acute diverticulitis and the appearance of a mass lesion in the descending colon. Surgery was consulted and recommended colonoscopy, so the patient was prepped appropriately however he did experience delirium overnight during his prep requiring the use of medications to calm him. On colonoscopy, the patient did have significant diverticulosis with no blood in the colon however there was no evidence of mass in the descending colon as seen on CT nor was there acute bleeding. Per the recommendations of urology, the patient would likely benefit from extraction of this left ureteral stone, however it does not need to be done inpatient. They were able to schedule this as an outpatient and he is stable for discharge. Surgery requested follow-up the patient for repeat scope in 2 months. The patient understands and agrees this plan. Because he does have atrial fibrillation and requires anticoagulation, it is recommended that he continue aspirin initially, and can again anticoagulation after 5-7 days. However, the patient apparently has not been taking his anticoagulation for about one year due to concerns of cost. It does appear based on review of outpatient records and [facility] that the patient has been referred to a Coumadin clinic in the past however has not followed up. We suggested the patient follow up with his cardiology practice in order to reestablish care and appropriate management of his atrial fibrillation. Discharge discussed with: patient, nurse, social work, case management - Time Spent with Patient Total time spent providing and/or coordinating discharge services: Greater than 30 minutes - Discharge Medications Prescriptions: RX: Metoprolol [Lopressor] 50 mg PO BID 30 Days #60 tablet RX: Omeprazole 20 mg PO DAILY #30 tablet. Home Medications: RX: Cholecalciferol (D-3) [Vitamin D] 2,000 unit PO DAILY 03/14/16 [History] RX: Lisinopril [Zestril] 40 mg PO DAILY 03/14/16 [History] RX: Mv,Minerals/FA/Lycopene/Ginkgo [One Daily For Men 50+ Adv Tab] 1 tab PO DAILY 03/14/16 [History] RX: amLODIPine [Norvasc] 5 mg PO BID 03/14/16 [History] RX: Aspirin 325 mg PO DAILY 11/23/18 [History] RX: Polyethylene Glycol 3350 [MiraLAX] 17 gm PO DAILY PRN 11/23/18 [History] RX: Metoprolol [Lopressor] 50 mg PO BID 30 Days #60 tablet 11/25/18 [Rx] RX: Omeprazole 20 mg PO DAILY #30 tablet. 11/25/18 [Rx] Allergies/Adverse Reactions: Allergy/AdvReac Type Severity Reaction Status Date / Time No Known Allergies Allergy Verified 11/22/18 13:17 Date of admission: 11/22/18 20:48 Primary care physician: Pelon Mustafa MD Consults: 11/22/18 17:38 Consult to Surgery [CONS] Stat Consulting Provider: [facility] Reason for Consult: colon mass lesion Time Notified: 17:39 Call Completed: Yes Consult to Urology [CONS] Stat Consulting Provider: [facility] Reason for Consult: obstructive uropathy, left hydro, kidney stone Call Completed: Yes Discharging clinician: Dominik Zimmerman Anticipated date of discharge: 11/25/18 - Constitutional Vitals: Temp Pulse Resp BP Pulse Ox 97.9 F 86 14 142/83 98 11/25/18 11:07 11/25/18 11:07 11/25/18 11:07 11/25/18 11:07 11/25/18 11:07 General appearance: Present: A&O X 3, answers questions appropriately Exam: Gen: Vitals noted. No acute distress. Eyes: anicteric sclerae, moist conjunctivae; no lid-lag; Pupils equal and reactive to light HENT: Atraumatic; oropharynx clear with moist mucous membranes and no mucosal ulcerations; normal hard and soft palate Neck: Trachea midline; supple, no thyromegaly or lymphadenopathy Cardiac: RRR, no murmur, +S1/S2 Pulmonary: CTA bilaterally, no wheezes, rales or rhonchi, equal chest expansion Abdomen: soft, nontender, no guarding. No masses or hepatosplenomegaly MSK: ROM intact, no joint swelling noted Extremities: no BLE edema, nontender calf, no cyanosis or clubbing Skin: Normal temperature, turgor and texture; no rash, ulcers or subcutaneous nodules Neuro: moves all extremities, no focal deficits. Psych: Appropriate mood and behavior. A&Ox3 - Patient Status Disposition: Home, Self-Care Condition: Good Functional capacity at discharge: independent ambulation Overall status at discharge: patient is progressing back to baseline - Discharge Instructions Instructions: Gastrointestinal Bleeding (DC), Rectal Bleeding (DC), Kidney Stones (DC), Safe Use of Anticoagulants (DC) Follow Up With: Pelon Mustafa MD [Primary Care Provider] - 12/02/18 1:15 pm Keyur Cleveland DO [Partnered Physician] - 01/26/19 9:10 am Jareth Lafleur MD [Partnered Physician] - 11/27/18 8:30 am Additional Instructions: Continue aspirin at this time however do not take several toe or Coumadin for at least 7 days. He may restart these medications after that time, however if she began to notice unusually dark, black, tarry stools or bright red blood in her stool at any time you should stop these medications and return to the emergency room immediately. Follow-up with urology for outpatient management of left ureteral stone. If you have large amounts of blood in your urine or pain, return to the ED. Follow-up with Surgery for repeat colonoscopy in 2mo for resolution of diverticular bleeding. Continue other medications as prescribed. Take Omeprazole 20mg each morning with meals. Talk to your primary care provider regarding whether you should continue this medication in the future. Follow-up with your primary care provider in 5-7 days. - Diet and Activity Activity: increase activity as tolerated Diet: regular diet <Abhilash Cherry - Last Filed: 11/25/18 17:01> Date of Encounter: 11/25/18 - Discharge Diagnosis (1) BRBPR (bright red blood per rectum) Status: Acute (2) Hydronephrosis Status: Acute Qualifiers: Hydronephrosis type: unspecified Qualified Code(s): N13.30 - Unspecified hydronephrosis (3) Hypertension Status: Acute Qualifiers: Hypertension type: essential hypertension Qualified Code(s): I10 - Essential (primary) hypertension (4) Left ureteral stone Status: Acute (5) Acute delirium Status: Acute (6) Atrial fibrillation Status: Acute Qualifiers: Atrial fibrillation type: unspecified Qualified Code(s): I48.91 - Unspecified atrial fibrillation Hospital course: Mr. Pollack is a 78 year old male - Time Spent with Patient Total time spent providing and/or coordinating discharge services: Date of admission: 11/22/18 20:48 Primary care physician: Pelon Mustafa MD Consults: 11/22/18 17:38 Consult to Surgery [CONS] Stat Consulting Provider: [facility] Reason for Consult: colon mass lesion Time Notified: 17:39 Call Completed: Yes Consult to Urology [CONS] Stat Consulting Provider: [facility] Reason for Consult: obstructive uropathy, left hydro, kidney stone Call Completed: Yes - Constitutional Vitals: Temp Pulse Resp BP Pulse Ox 97.4 F L 103 16 154/81 98 11/25/18 16:40 11/25/18 16:40 11/25/18 16:40 11/25/18 16:40 11/25/18 16:40 - Attending Attestation I examined this patient and my medical decision-making was reviewed with the Resident Physician. I agree with the documented discharge as above. GEN: NAD CVS: RRR. S1, S2, No m/r/g RESP: CTAB ABD: Soft, NT, ND, +BS EXT: No edema. 2+ DP. No rashes NEURO: Nonfocal
[2018-11-25 16:43] VITALS: BP 154/81
--- NOTE | 2018-11-25 20:35 | Electrocardiograph Report ---
[address] [place] [address] Test Date: 2018-11-22 Pat Name: Jones [place] Department: EXAM2 Room: 3A21 Gender: M [employer]ing [employer]st: : 1940 Requested By: Emy Hinojosa Order Number: [id number] Reading MD: Taina Licona Measurements Intervals [place] Rate: 98 P: WI: QRS: 82 QRSD: 162 T: -28 QT: 402 QTc: 514 Interpretive Statements Atrial fibrillation Right bundle branch block Electronically Signed On 11-25-2018 20:33:28 EST by Taina Licona
== END 2018-11-25 18:15 | disposition home or self-care (01) | DRG 378 ==
LOC: EMEROOARM 13:00 → 3ANU 13:00 → SUATTDRO 20:48 → 3ANU 11-25 00:53
PROVIDERS: ADMIT Student in an Organized Health Care Education/Training Program; ATTEND Internal Medicine